=== PATIENT | male | born 1985 | race Caucasian/White ===

== ENCOUNTER → 2018-05-13 15:44 | Outpatient (CLI) | payer OTHER, SELFPAY ==
--- NOTE | 2018-05-13 15:51 | MR_ITS ---
MR knee LT wo con HISTORY: Left knee pain and instability ITS.REASON: LEFT KNEE PAIN ORDERING PHYSICIAN: Antoine Malagon MD PATIENT AGE: 32 years Comparison: 11/04/2017 TECHNIQUE: Standard multiplanar multiecho sequences are performed without contrast. FINDINGS: The PCL is intact. The fibers of the ACL are discontinuous along the superior margin consistent with tear of the ACL. The collateral ligaments, patellar tendon, and quadriceps tendon are intact. There is a complex tear involving the posterior horn the medial meniscus which does not appear displaced. There is a small longitudinal tear involving the posterior horn of the lateral meniscus centrally. There is a somewhat wedge-shaped zone of decreased T1 and increased T2 signal involving the lateral femoral condyle posteriorly consistent with avascular necrosis. There is a medium size knee joint effusion. The patellar cartilage is preserved. IMPRESSION: 1. Tear of the ACL superiorly. 2. Complex tear of the posterior horn of the medial meniscus 3. Longitudinal tear involving the posterior horn of the lateral meniscus centrally 4. 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 Knee joint effusion
== END ==
PROVIDERS: PCP Family Medicine; Referring Provider Family Medicine; Visit Provider Family Medicine
DX: M25.562 Pain in left knee (principal); R68.89 Other general symptoms and signs
CPT/HCPCS: 73721